=== PATIENT | female | born 1975 | race Caucasian/White ===

== ENCOUNTER 2024-01-10 08:50 | Outpatient (RCR) | payer MEDICAID, MEDICARE, SELFPAY ==
[2024-01-10] VITALS (10 sets, daily range): BP systolic 101–120; BP diastolic 57–95
[2024-01-10] MEDS: TYLENOL 650 MG PO (09:31)
[2024-01-10] MEDS: CLARITIN 10 MG PO (09:31)
[2024-01-10] MEDS: SOLU-MEDROL PF 51.92 MG IV (09:31)
[2024-01-10] MEDS: [UNRECOGNIZED DRUG - OTHER] 250 MG IV (09:52)
== END 2024-01-16 23:59 | disposition home or self-care (01) ==
LOC: OID 08:50
PROVIDERS: ATTENDING PHYSICIAN Electrodiagnostic Medicine; FAMILY PHYSICIAN Internal Medicine
DX: G35 Multiple sclerosis (principal)
CPT/HCPCS: 96365; 96366; 96367; J2329

== ENCOUNTER 2024-01-24 10:02 | Outpatient (RCR) | payer MEDICARE, MEDICAID, SELFPAY ==
[2024-01-24 10:30] VITALS: BP 95/54
[2024-01-24] MEDS: TYLENOL 650 MG PO (10:56)
[2024-01-24] MEDS: CLARITIN 10 MG PO (10:56)
[2024-01-24] MEDS: SOLU-MEDROL PF 51.92 MG IV (10:57)
[2024-01-24] MEDS: [UNRECOGNIZED DRUG - OTHER] 250 MG IV (11:18)
[2024-01-24 11:20] VITALS: BP 108/66
[2024-01-24 11:50] VITALS: BP 71/50
[2024-01-24 12:20] VITALS: BP 97/57
[2024-01-24 12:50] VITALS: BP 97/64
[2024-01-24 13:20] VITALS: BP 94/58
== END 2024-01-25 10:09 | disposition home or self-care (01) ==
LOC: OID 10:02
PROVIDERS: ATTENDING PHYSICIAN Electrodiagnostic Medicine; FAMILY PHYSICIAN Internal Medicine
DX: G35 Multiple sclerosis (principal)
CPT/HCPCS: 96367; 96413; J2329